=== PATIENT | male | born 1945 | race Caucasian/White ===

== ENCOUNTER 2018-11-16 21:42 | Emergency (ER) | payer MEDICARE ==
[~2018-11-16] VITALS: Ht 172.7 cm; Wt 87.0 kg
--- NOTE | 2018-11-16 21:55 | NUR ---
PT IN XRAY
[2018-11-16 22:08] LABS: BASOPHILS # (AUTO) 0.1 X10'3 (0-0.2); BASOPHILS % (AUTO) 0.7 % (0-1); EOSINOPHILS # (AUTO) 0.5 X10'3 (0-0.9); EOSINOPHILS % (AUTO) 5.4 % (0-6); HEMATOCRIT 35.8 % (42.0-52.0); HEMOGLOBIN 12.4 g/dl (14.0-17.9); LYMPHOCYTES # (AUTO) 2.2 X10'3 (1.1-4.8); LYMPHOCYTES % (AUTO) 24.1 % (21-51); MEAN CORPUSCULAR HEMOGLOBIN 32.1 PG (27.0-31.0); MEAN CORPUSCULAR HGB CONC 34.5 g/dL (33.0-36.5); MEAN CORPUSCULAR VOLUME 92.8 FL (78-98); MEAN PLATELET VOLUME 6.3 FL (7.4-10.4); MONOCYTES % (AUTO) 11.2 % (2-12); NEUTROPHILS # (AUTO) 5.3 X10'3 (1.8-7.7); NEUTROPHILS % (AUTO) 58.6 % (42-75); PLATELET COUNT 155 X10'3 (140-440); RED BLOOD COUNT 3.86 X10'6 (4.70-6.10); RED CELL DISTRIBUTION WIDTH 16.1 % (11.5-14.5); WHITE BLOOD COUNT 9.1 X10'3 (4.5-11.0)
[2018-11-16 22:29] LABS: ALANINE AMINOTRANSFERASE 16 U/L (12-78); ALBUMIN 3.4 G/DL (3.4-5.0); ALBUMIN/GLOBULIN RATIO 0.8 (1.1-1.5); ALKALINE PHOSPHATASE 97 IU/L (46-116); ANION GAP 11 (8-16); ASPARTATE AMINO TRANSFERASE 19 U/L (10-37); BILIRUBIN,TOTAL 0.9 MG/DL (0.1-1.0); BLOOD UREA NITROGEN 15 MG/DL (7-18); BUN/CREATININE RATIO 16.7 (5.4-32.0); CALCIUM 9.2 MG/DL (8.5-10.1); CHLORIDE 105 MMOL/L (99-107); GLUCOSE 112 MG/DL (70-104); SODIUM 140 MMOL/L (135-145); TOTAL CARBON DIOXIDE 23.7 MMOL/L (24-32); TOTAL PROTEIN 7.5 G/DL (6.4-8.2); eGFR 82 ML/MIN
[2018-11-16] MEDS ORDERED: potassium Cl 20 mEq SR tablet PO STA (22:38)
[2018-11-16 23:31] LABS: D-DIMER 2.07 MG/L FEU (0-0.50)
[2018-11-17] MEDS ORDERED: iohexol 350MG/ML 100ml bottle IV ONE (00:09)
[2018-11-17] MEDS ORDERED: normal saline 1000ML IV soln IVB ONE (00:20)
--- NOTE | 2018-11-17 00:37 | NUR ---
TO CT SCAN
--- NOTE | 2018-11-17 00:41 | NUR ---
Nitin kenny in [facility] - 11/17/18 at 0047 by ELLA PATIENT SLEEPING
[2018-11-17 02:40] VITALS: BP 140/75
== END 2018-11-17 02:41 | disposition home or self-care (01) ==
LOC: ER 21:43
DX: K80.20 Calculus of gallbladder without cholecystitis without obstruction (principal); R07.89 Other chest pain; R06.02 Shortness of breath; E87.6 Hypokalemia; I25.10 Atherosclerotic heart disease of native coronary artery without angina pectoris; E78.00 Pure hypercholesterolemia, unspecified; I10 Essential (primary) hypertension; Z87.891 Personal history of nicotine dependence
CPT/HCPCS: 36415; 71045; 71275; 80053; 83880; 84484; 85025; 85379; 93005; 99284; J7030; Q9967

== ENCOUNTER 2019-05-19 07:58 | Observation (INO) | payer MEDICARE, BC ==
[~2019-05-19] VITALS: Ht 172.7 cm; Wt 87.3 kg
[2019-05-19] MEDS ORDERED: meclizine 12.5mg tablet PO ONE (08:35)
[2019-05-19 09:10] LABS: BASOPHILS # (AUTO) 0.1 X10'3 (0-0.2); BASOPHILS % (AUTO) 1.2 % (0-1); EOSINOPHILS # (AUTO) 0.4 X10'3 (0-0.9); EOSINOPHILS % (AUTO) 7.2 % (0-6); HEMATOCRIT 37.9 % (42.0-52.0); HEMOGLOBIN 12.9 g/dl (14.0-17.9); LYMPHOCYTES # (AUTO) 1.6 X10'3 (1.1-4.8); LYMPHOCYTES % (AUTO) 30.5 % (21-51); MEAN CORPUSCULAR HGB CONC 34.2 g/dL (33.0-36.5); MEAN CORPUSCULAR VOLUME 96.6 FL (78-98); MEAN PLATELET VOLUME 6.5 FL (7.4-10.4); MONOCYTES # (AUTO) 0.4 X10'3 (0-0.9); NEUTROPHILS # (AUTO) 2.9 X10'3 (1.8-7.7); NEUTROPHILS % (AUTO) 53.1 % (42-75); PLATELET COUNT 181 X10'3 (140-440); RED BLOOD COUNT 3.92 X10'6 (4.70-6.10); RED CELL DISTRIBUTION WIDTH 13.4 % (11.5-14.5); WHITE BLOOD COUNT 5.4 X10'3 (4.5-11.0)
[2019-05-19 09:17] LABS: PARTIAL THROMBOPLASTIN TIME 29 SECONDS (22-32)
[2019-05-19 09:27] LABS: ALANINE AMINOTRANSFERASE 16 U/L (12-78); ALBUMIN 3.2 G/DL (3.4-5.0); ALBUMIN/GLOBULIN RATIO 0.8 (1.1-1.5); ALKALINE PHOSPHATASE 98 IU/L (46-116); ANION GAP 8 (8-16); ASPARTATE AMINO TRANSFERASE 20 U/L (10-37); BILIRUBIN,TOTAL 0.6 MG/DL (0.1-1.0); BLOOD UREA NITROGEN 17 MG/DL (7-18); CALCIUM 8.9 MG/DL (8.5-10.1); CHLORIDE 105 MMOL/L (99-107); GLUCOSE 98 MG/DL (70-104); SODIUM 140 MMOL/L (135-145); TOTAL CARBON DIOXIDE 27.3 MMOL/L (24-32); TOTAL PROTEIN 7.2 G/DL (6.4-8.2); eGFR 73 ML/MIN
[2019-05-19 09:28] LABS: POTASSIUM 3.6 MMOL/L (3.5-5.1)
[2019-05-19] MEDS ORDERED: LORazepam 1 MG tablet PO ONE (10:10)
[2019-05-19] MEDS ORDERED: ondansetron/PF 4mg/2ml inj IV PRN (10:20)
[2019-05-19] MEDS ORDERED: acetaminophen 325mg tablet PO PRN ×2 (10:20)
[2019-05-19] MEDS ORDERED: morphine 2 MG/ML inj. syringe IV PRN ×2 (10:20)
[2019-05-19] MEDS ORDERED: HYDROcodone/acetaminophen 5mg/325mg tablet PO PRN (10:20)
[2019-05-19] MEDS ORDERED: magnesium hydroxide 30ml (MOM) UD suspension PO PRN (10:20)
[2019-05-19] MEDS ORDERED: mag hydrox/Alum hydrox/simeth 30ml oral suspension PO PRN (10:20)
[2019-05-19] MEDS ORDERED: LOSA1TAB39 PO (10:34)
[2019-05-19] MEDS ORDERED: SIMV-42 PO (10:34)
[2019-05-19] MEDS ORDERED: BUDE10.2 INH (10:34)
[2019-05-19] MEDS ORDERED: AMLO10TA13 PO (10:34)
[2019-05-19] MEDS ORDERED: CLOP75TA35 PO (10:34)
[2019-05-19] MEDS ORDERED: APIX5TAB3 PO (10:34)
[2019-05-19] MEDS ORDERED: ATEN25TA17 PO (10:34)
[2019-05-19] MEDS: normal saline 1000ml 1,000 ML IV SCH ×2 (10:48→21:42)
--- NOTE | 2019-05-19 10:59 | NUR ---
RECEIVED REPORT FROM BARRY BRINK IN ER
[2019-05-19 12:09] VITALS: BP 159/77
[2019-05-19] MEDS ORDERED: meclizine 12.5mg tablet PO PRN (12:35)
[2019-05-19 12:44] LABS: CLARITY,URINE CLEAR (Clear); COLOR,URINE STRAW (Yellow); GLUCOSE, URINE NEGATIVE (Neg); KETONES,URINE NEGATIVE (Neg); LEUKOCYTE ESTERASE ,URINE NEGATIVE (Neg); NITRITES, URINE NEGATIVE (Neg); OCCULT BLOOD,URINE SMALL (Neg); PROTEIN,URINE NEGATIVE (Neg); UROBILINOGEN,URINE 0.2 E.U/dL (0.2-1.0)
[2019-05-19] MEDS ORDERED: LORazepam 2 mg/ml vial IV ONE (12:50)
[2019-05-19 12:52] LABS: UA COLLECTION TYPE NON-SPECIFIED
[2019-05-19 12:58] LABS: HYALINE CASTS 0-3 /LPF (NEGATIVE); MUCUS STRANDS FEW /LPF (Neg); SQUAMOUS EPITHELIAL CELL,UR FEW /LPF (FEW)
[2019-05-19 12:59] LABS: BACTERIA,URINE NONE SEEN /HPF (Neg); WBC,URINE NONE SEEN /HPF (0-4)
[2019-05-19 18:00] VITALS: BP 142/72
--- NOTE | 2019-05-19 18:16 | NUR ---
gave report to rena beaver
--- NOTE | 2019-05-19 18:20 | NUR ---
Received report from Joi BRINK. assumed care of patient
[2019-05-19] MEDS: apixaban 5mg tablet PO SCH (19:26)
[2019-05-19] MEDS: albuterol 2.5 MG/3 ML nebule NEB SCH (19:48)
[2019-05-19] MEDS: budesonide 0.5mg/2ml UD nebule IH SCH (19:48)
[2019-05-19 20:00] VITALS: BP_SYST 132; BP_SYST 137; BP_SYST 140; BP_DIAS 57; BP_DIAS 71; BP_DIAS 72
[2019-05-19 22:00] VITALS: BP 132/57
[2019-05-20] MEDS: albuterol 2.5 MG/3 ML nebule NEB SCH ×2 (03:12→09:57)
[2019-05-20 06:00] VITALS: BP 124/60
--- NOTE | 2019-05-20 06:15 | NUR ---
Patient in room ORTHO 4011. I have received report from [facility] and had the opportunity to ask questions and assume patient care.
--- NOTE | 2019-05-20 06:20 | NUR ---
Gave report to Annabelle BRINK.
[2019-05-20 07:24] LABS: BASOPHILS % (AUTO) 0.7 % (0-1); EOSINOPHILS # (AUTO) 0.3 X10'3 (0-0.9); EOSINOPHILS % (AUTO) 4.6 % (0-6); HEMOGLOBIN 11.8 g/dl (14.0-17.9); LYMPHOCYTES # (AUTO) 1.4 X10'3 (1.1-4.8); MEAN CORPUSCULAR HEMOGLOBIN 33.3 PG (27.0-31.0); MEAN CORPUSCULAR HGB CONC 34.8 g/dL (33.0-36.5); MEAN CORPUSCULAR VOLUME 95.8 FL (78-98); MEAN PLATELET VOLUME 6.5 FL (7.4-10.4); MONOCYTES # (AUTO) 0.6 X10'3 (0-0.9); MONOCYTES % (AUTO) 8.7 % (2-12); NEUTROPHILS # (AUTO) 4.8 X10'3 (1.8-7.7); PLATELET COUNT 161 X10'3 (140-440); RED BLOOD COUNT 3.55 X10'6 (4.70-6.10); RED CELL DISTRIBUTION WIDTH 13.4 % (11.5-14.5); WHITE BLOOD COUNT 7.1 X10'3 (4.5-11.0)
[2019-05-20] MEDS: normal saline 1000ml 1,000 ML IV SCH (07:42)
[2019-05-20 07:43] LABS: ALBUMIN 2.7 G/DL (3.4-5.0); ANION GAP 7 (8-16); BLOOD UREA NITROGEN 12 MG/DL (7-18); CALCIUM 8.4 MG/DL (8.5-10.1); CHLORIDE 106 MMOL/L (99-107); CREATININE 0.86 MG/DL (0.60-1.10); GLUCOSE 98 MG/DL (70-104); POTASSIUM 3.3 MMOL/L (3.5-5.1); SODIUM 141 MMOL/L (135-145); TOTAL CARBON DIOXIDE 27.7 MMOL/L (24-32); eGFR 87 ML/MIN
[2019-05-20] MEDS ORDERED: clopidogrel 75mg tablet PO SCH (08:00)
[2019-05-20] MEDS ORDERED: atorvastatin 10mg tablet PO SCH (08:00)
[2019-05-20] MEDS ORDERED: losartan 50mg tablet PO SCH (08:00)
[2019-05-20] MEDS ORDERED: atenolol 25mg tablet PO SCH (08:00)
[2019-05-20] MEDS ORDERED: amLODIPine 5mg tablet PO SCH (08:00)
[2019-05-20] MEDS ORDERED: HYDROchlorothiazide 25mg tablet PO SCH (08:00)
[2019-05-20] MEDS: apixaban 5mg tablet PO SCH (08:06)
--- NOTE | 2019-05-20 08:08 | NUR ---
PAGER ID: [phone] MESSAGE: Markos Siegel, RE: Mr. Gregory in room 4011A, potassium was 3.3, may we order the replacement protocol? Thank you Annabelle # [phone]
[2019-05-20] MEDS ORDERED: potassium Cl 20 mEq SR tablet PO STA (08:16)
[2019-05-20] MEDS: budesonide 0.5mg/2ml UD nebule IH SCH (09:57)
[2019-05-20 10:00] VITALS: BP 161/80
[2019-05-20] MEDS ORDERED: MECL12.584 PO (11:06)
--- NOTE | 2019-05-20 14:00 | NUR ---
Reviewed discharge instructions with pt. Pt verbalized understanding. Pt is alert, oriented and does not have c/o pain at this time. All of pt's belongings were returned to pt. Pt was wheeled downstairs to be driven home by his daughter. Rx was called in to [facility] on [address] in [place].
== END 2019-05-20 14:00 | disposition home or self-care (01) ==
LOC: ER 07:59 → ED HOLD 10:16 → ORTHO 4S 11:25
PROVIDERS: ADMIT Internal Medicine; ATTEND Internal Medicine
DX: R42 Dizziness and giddiness (principal); I10 Essential (primary) hypertension; I48.0 Paroxysmal atrial fibrillation; E78.5 Hyperlipidemia, unspecified; E78.00 Pure hypercholesterolemia, unspecified; I25.10 Atherosclerotic heart disease of native coronary artery without angina pectoris; J44.9 Chronic obstructive pulmonary disease, unspecified; Z79.01 Long term (current) use of anticoagulants; Z79.02 Long term (current) use of antithrombotics/antiplatelets; Z79.899 Other long term (current) drug therapy; Z87.891 Personal history of nicotine dependence; Z96.611 Presence of right artificial shoulder joint; Z96.612 Presence of left artificial shoulder joint
CPT/HCPCS: 36415; 70450; 70544; 70551; 71045; 80048; 80053; 81001; 83880; 84484; 85025; 85610; 85730; 87081; 93005; 94640; 94760; 96361; 96374; 99284; G0378; J2060; J7030; J8597; J7626

== ENCOUNTER 2019-05-25 05:59 | Day surgery (SDC) | payer MEDICARE, BC ==
[2019-05-23 17:12] LABS: BASOPHILS # (AUTO) 0.1 X10'3 (0-0.2); BASOPHILS % (AUTO) 0.6 % (0-1); EOSINOPHILS # (AUTO) 0.3 X10'3 (0-0.9); EOSINOPHILS % (AUTO) 3.9 % (0-6); HEMATOCRIT 37.7 % (42.0-52.0); LYMPHOCYTES # (AUTO) 1.5 X10'3 (1.1-4.8); LYMPHOCYTES % (AUTO) 18.3 % (21-51); MEAN CORPUSCULAR HEMOGLOBIN 33.4 PG (27.0-31.0); MEAN CORPUSCULAR HGB CONC 34.5 g/dL (33.0-36.5); MEAN CORPUSCULAR VOLUME 96.9 FL (78-98); MEAN PLATELET VOLUME 6.6 FL (7.4-10.4); MONOCYTES # (AUTO) 0.8 X10'3 (0-0.9); MONOCYTES % (AUTO) 10.4 % (2-12); NEUTROPHILS # (AUTO) 5.3 X10'3 (1.8-7.7); NEUTROPHILS % (AUTO) 66.8 % (42-75); PLATELET COUNT 194 X10'3 (140-440); RED BLOOD COUNT 3.89 X10'6 (4.70-6.10); RED CELL DISTRIBUTION WIDTH 13.6 % (11.5-14.5)
[2019-05-23 17:19] LABS: ALBUMIN 3.4 G/DL (3.4-5.0); ANION GAP 9 (8-16); BLOOD UREA NITROGEN 21 MG/DL (7-18); BUN/CREATININE RATIO 20.8 (5.4-32.0); CALCIUM 9.4 MG/DL (8.5-10.1); CHLORIDE 103 MMOL/L (99-107); CREATININE 1.01 MG/DL (0.60-1.10); GLUCOSE 102 MG/DL (70-104); POTASSIUM 3.7 MMOL/L (3.5-5.1); SODIUM 138 MMOL/L (135-145); eGFR 72 ML/MIN
[2019-05-23 17:23] LABS: PARTIAL THROMBOPLASTIN TIME 31 SECONDS (22-32)
[~2019-05-25] VITALS: Ht 172.7 cm; Wt 88.0 kg
[2019-05-25] VITALS (13 sets, daily range): BP systolic 108–148; BP diastolic 64–89
[~2019-05-25 05:59] MED LIST: AMLO10TA13 PO; APIX5TAB3 PO; ATEN25TA17 PO; BUDE10.2 INH; CLOP75TA35 PO; LOSA1TAB39 PO; MECL12.584 PO; SIMV-42 PO
[2019-05-25] MEDS ORDERED: MECL12.584 PO (06:24)
[2019-05-25] MEDS ORDERED: LORazepam 0.5 MG tablet PO PRN (06:30)
[2019-05-25] MEDS ORDERED: LIDOcaine/PRILOcaine 5gm cream TP ONE (06:30)
[2019-05-25] MEDS ORDERED: diphenhydrAMINE 25mg capsule PO PRN (06:30)
[2019-05-25] MEDS ORDERED: normal saline 1,000 ML IV SCH (06:30)
[2019-05-25] MEDS ORDERED: nitroGLYCERIN-Tridil 50MG/D5W 250 ML IV ONE (07:28)
[2019-05-25] MEDS ORDERED: iohexol 350 MG/ML 50ML vial IV ONE (07:28)
[2019-05-25] MEDS ORDERED: midazolam 2 mg/2 ml injection ONE ×2 (07:28→08:27)
[2019-05-25] MEDS ORDERED: iohexol 350MG/ML 100ml bottle IV ONE ×2 (07:28→08:46)
[2019-05-25] MEDS ORDERED: heparin 1,000unit/ml 10ml vial 10 ML ONE (07:28)
[2019-05-25] MEDS ORDERED: fentaNYL/PF 50MCG/1 ML 2ML syringe ONE ×2 (07:28→08:27)
[2019-05-25] MEDS ORDERED: LIDOcaine 1% 30ml preserv. free vial ONE (07:28)
--- NOTE | 2019-05-25 08:15 | NUR ---
Dr. SANDHYA Astorga called, stated heart cath will be a femoral approach, no RT AC needed. One attempt had already been made without success. apolinar applied. no further attempts needed.
--- NOTE | 2019-05-25 11:15 | NUR ---
voided 500ml yellow clear fluid
--- NOTE | 2019-05-25 12:55 | NUR ---
Pt voided 450ml, clear, yellow
--- NOTE | 2019-05-25 14:00 | NUR ---
redressed cath site drsg using sterile technique. pt now sitting up at a 35% angle. Will continue to monitor.
--- NOTE | 2019-05-25 14:15 | NUR ---
Repositioned pt to 90 degree angle while sitting in bed. Site stable, pressure drsg in place, no s/s of bleeding. will continue to monitor. Addendum: 05/25/19 at 1756 by Radha Munson RN correction, time of this event was late entry for 1630
--- NOTE | 2019-05-25 14:40 | NUR ---
Rt groin bleeding from arterial site, pressure held with sterile technique for 15 min. Groin soft at this time, no s/s of bleeding. Redressed. Pt vs charted. Pt denies pain, denies sob. Will continue to monitor.
--- NOTE | 2019-05-25 14:50 | NUR ---
Pressure dressing in place, pt laying flat, vs stable as charted will continue to monitor.
--- NOTE | 2019-05-25 16:00 | NUR ---
Pt sitting at 35 degree angle in bed. Site is stable. no s/s of bleeding, will continue to monitor.
[2019-05-25 16:01] LABS: ISTAT HGB ART 11.6 g/dl (14.0-18.0); ISTAT Hct ART 34 %PCV (42-52); ISTAT Hct MIX 34 %PCV (42-52); ISTAT O2 SATURATION ARTERIAL 96 % (95-98); ISTAT O2 SATURATION MIX VENOUS 79 % (60-80); ISTAT SOURCE ART; ISTAT SOURCE MIX
--- NOTE | 2019-05-25 16:30 | NUR ---
pt ambulated floor, site stable.
== END 2019-05-25 17:35 | disposition home or self-care (01) ==
LOC: SSTAY O 05:59
PROVIDERS: ATTEND Internal Medicine Cardiovascular Disease
DX: I35.0 Nonrheumatic aortic (valve) stenosis (principal); I70.0 Atherosclerosis of aorta; I65.23 Occlusion and stenosis of bilateral carotid arteries; I10 Essential (primary) hypertension; E78.5 Hyperlipidemia, unspecified; J44.9 Chronic obstructive pulmonary disease, unspecified; E66.9 Obesity, unspecified; Z68.29 Body mass index [BMI] 29.0-29.9, adult; Z79.899 Other long term (current) drug therapy; Z98.890 Other specified postprocedural states; Z87.891 Personal history of nicotine dependence
CPT/HCPCS: 36222; 36415; 80048; 82803; 85014; 85025; 85610; 85730; 93005; 93460; 93567; 99152; 99153; C1769; J1644; J2001; J2250; J3010; J7030; Q0163; Q9967; A4620; A6258; C1760; J3490

== ENCOUNTER 2019-10-13 12:36 | Emergency (ER) | payer MEDICARE, BC ==
[~2019-10-13] VITALS: Ht 172.7 cm; Wt 85.0 kg
[~2019-10-13 12:36] MED LIST changes: +MECL-184 PO; -MECL12.584 PO
[2019-10-13 13:36] LABS: BASOPHILS # (AUTO) 0.1 X10'3 (0-0.2); BASOPHILS % (AUTO) 1.2 % (0-1); EOSINOPHILS # (AUTO) 0.2 X10'3 (0-0.9); EOSINOPHILS % (AUTO) 2.3 % (0-6); HEMATOCRIT 37.3 % (42.0-52.0); HEMOGLOBIN 12.7 g/dl (14.0-17.9); LYMPHOCYTES # (AUTO) 0.7 X10'3 (1.1-4.8); LYMPHOCYTES % (AUTO) 7.6 % (21-51); MEAN CORPUSCULAR HEMOGLOBIN 32.6 PG (27.0-31.0); MEAN CORPUSCULAR HGB CONC 34.1 g/dL (33.0-36.5); MEAN CORPUSCULAR VOLUME 95.6 FL (78-98); MEAN PLATELET VOLUME 6.6 FL (7.4-10.4); MONOCYTES # (AUTO) 0.5 X10'3 (0-0.9); MONOCYTES % (AUTO) 5.3 % (2-12); NEUTROPHILS # (AUTO) 8.2 X10'3 (1.8-7.7); NEUTROPHILS % (AUTO) 83.6 % (42-75); PLATELET COUNT 147 X10'3 (140-440); RED BLOOD COUNT 3.91 X10'6 (4.70-6.10); RED CELL DISTRIBUTION WIDTH 13.8 % (11.5-14.5); WHITE BLOOD COUNT 9.8 X10'3 (4.5-11.0)
[2019-10-13 13:51] LABS: ALANINE AMINOTRANSFERASE 12 U/L (12-78); ALBUMIN 3.5 G/DL (3.4-5.0); ALKALINE PHOSPHATASE 80 IU/L (46-116); ANION GAP 9 (8-16); ASPARTATE AMINO TRANSFERASE 25 U/L (10-37); BILIRUBIN,TOTAL 1.2 MG/DL (0.1-1.0); BLOOD UREA NITROGEN 16 MG/DL (7-18); BUN/CREATININE RATIO 16.3 (5.4-32.0); CALCIUM 8.6 MG/DL (8.5-10.1); CHLORIDE 105 MMOL/L (99-107); CREATININE 0.98 MG/DL (0.60-1.10); GLUCOSE 121 MG/DL (70-104); POTASSIUM 3.8 MMOL/L (3.5-5.1); SODIUM 140 MMOL/L (135-145); TOTAL CARBON DIOXIDE 25.9 MMOL/L (24-32); eGFR 75 ML/MIN
[2019-10-13 14:23] VITALS: BP 118/77
== END 2019-10-13 14:51 | disposition home or self-care (01) ==
LOC: ER 12:36
DX: R06.02 Shortness of breath (principal); R09.89 Other specified symptoms and signs involving the circulatory and respiratory systems; I25.10 Atherosclerotic heart disease of native coronary artery without angina pectoris; E78.00 Pure hypercholesterolemia, unspecified; I10 Essential (primary) hypertension; J44.9 Chronic obstructive pulmonary disease, unspecified; F17.200 Nicotine dependence, unspecified, uncomplicated; Z79.899 Other long term (current) drug therapy
CPT/HCPCS: 36415; 71045; 80053; 83605; 83880; 84145; 85025; 87040; 93005; 99285

== ENCOUNTER 2020-06-23 14:14 | Emergency (ER) | payer MEDICARE, BC ==
[~2020-06-23] VITALS: Ht 172.7 cm; Wt 86.4 kg
[~2020-06-23 14:14] MED LIST changes: +CLOP75TA34 PO; -CLOP75TA35 PO
[2020-06-23] MEDS ORDERED: TETanus/Pertussis (Acell)/Diphther VAC/PF (Tdap-Adult) 0.5ml syringe IMVAC ONE (15:00)
[2020-06-23] MEDS ORDERED: LIDOcaine 1% W/epiNEPHrine 1:200,000 10ml vial IJ ONE (15:00)
[2020-06-23] MEDS ORDERED: LORazepam 0.5 MG tablet PO ONE (15:15)
[2020-06-23] MEDS ORDERED: cefazolin/dext.iso 2gm/100ml 100 ML IV ONE (15:20)
[2020-06-23] MEDS ORDERED: ceFAZolin 2gm in dextrose, iso 50 ML IV ONE (15:23)
[2020-06-23] MEDS ORDERED: CEPH250T PO (16:10)
[2020-06-23] MEDS ORDERED: HYDR-4383 PO (16:10)
[2020-06-23 17:09] VITALS: BP 149/68
== END 2020-06-23 17:11 | disposition home or self-care (01) ==
LOC: ER 14:15
DX: S68.110A Complete traumatic metacarpophalangeal amputation of right index finger, initial encounter (principal); I25.10 Atherosclerotic heart disease of native coronary artery without angina pectoris; E78.00 Pure hypercholesterolemia, unspecified; J44.9 Chronic obstructive pulmonary disease, unspecified; I10 Essential (primary) hypertension; Z98.890 Other specified postprocedural states; Z79.899 Other long term (current) drug therapy; W22.8XXA Striking against or struck by other objects, initial encounter; Y93.89 Activity, other specified; Y99.8 Other external cause status; Y92.89 Other specified places as the place of occurrence of the external cause
CPT/HCPCS: 26951; 73140; 90471; 90715; 96365; 99284

== ENCOUNTER 2020-06-23 20:19 | Emergency (ER) | payer MEDICARE, BC ==
[~2020-06-23] VITALS: Ht 172.7 cm; Wt 86.4 kg
[~2020-06-23 20:19] MED LIST changes: +CEPH250T PO; +HYDR-4383 PO
[2020-06-23 20:57] VITALS: BP 149/79
== END 2020-06-23 22:15 | disposition home or self-care (01) ==
LOC: ER 20:20
DX: S68.120D Partial traumatic metacarpophalangeal amputation of right index finger, subsequent encounter (principal); I25.10 Atherosclerotic heart disease of native coronary artery without angina pectoris; I10 Essential (primary) hypertension; E78.00 Pure hypercholesterolemia, unspecified; J44.9 Chronic obstructive pulmonary disease, unspecified; Z87.891 Personal history of nicotine dependence; Z79.2 Long term (current) use of antibiotics; Z79.899 Other long term (current) drug therapy; X58.XXXD Exposure to other specified factors, subsequent encounter
CPT/HCPCS: 99281; 99283

== ENCOUNTER 2021-05-13 09:30 | Inpatient (IN) | payer MEDICARE, BC ==
[~2021-05-13] VITALS: Ht 170.2 cm; Wt 86.4 kg
[~2021-05-13 09:30] MED LIST changes: +ALBU17AE26 IH; +AMIO200T67 PO; +ASPI-1071 PO; -ATEN25TA17 PO; +ATOR40TA72 PO; -CEPH250T PO; -CLOP75TA34 PO; -HYDR-4383 PO; -MECL-184 PO; +MECL-231 PO; -SIMV-42 PO; +[UNRECOGNIZED DRUG - CODE] PO
--- NOTE | 2021-05-13 09:42 | NUR ---
Luiza Gregory ([facility]) [phone].
[2021-05-13 10:24] LABS: BASOPHILS # (AUTO) 0.1 X10'3 (0-0.2); EOSINOPHILS # (AUTO) 0.2 X10'3 (0-0.9); EOSINOPHILS % (AUTO) 2.5 % (0-6); HEMATOCRIT 37.3 % (42.0-52.0); HEMOGLOBIN 12.9 g/dl (14.0-17.9); LYMPHOCYTES % (AUTO) 12.8 % (21-51); MEAN CORPUSCULAR HEMOGLOBIN 33.9 PG (27.0-31.0); MEAN CORPUSCULAR HGB CONC 34.6 g/dL (33.0-36.5); MEAN PLATELET VOLUME 6.6 FL (7.4-10.4); MONOCYTES # (AUTO) 0.7 X10'3 (0-0.9); MONOCYTES % (AUTO) 8.4 % (2-12); NEUTROPHILS # (AUTO) 5.9 X10'3 (1.8-7.7); NEUTROPHILS % (AUTO) 75.3 % (42-75); PLATELET COUNT 139 X10'3 (140-440); RED BLOOD COUNT 3.81 X10'6 (4.70-6.10); WHITE BLOOD COUNT 7.9 X10'3 (4.5-11.0)
[2021-05-13 10:37] LABS: D-DIMER 1.77 MG/L FEU (0-0.50)
[2021-05-13 10:39] LABS: ALANINE AMINOTRANSFERASE 19 U/L (12-78); ALBUMIN 3.8 G/DL (3.4-5.0); ALBUMIN/GLOBULIN RATIO 1.2 (1.1-1.5); ALKALINE PHOSPHATASE 98 IU/L (46-116); ANION GAP 10 (8-16); ASPARTATE AMINO TRANSFERASE 20 U/L (10-37); BILIRUBIN,TOTAL 1.5 MG/DL (0.1-1.0); BLOOD UREA NITROGEN 10 MG/DL (7-18); BUN/CREATININE RATIO 10.1 (5.4-32.0); CALCIUM 8.6 MG/DL (8.5-10.1); CHLORIDE 93 MMOL/L (99-107); CREATININE 0.99 MG/DL (0.60-1.10); GLUCOSE 122 MG/DL (70-104); POTASSIUM 4.1 MMOL/L (3.5-5.1); SODIUM 129 MMOL/L (135-145); TOTAL CARBON DIOXIDE 25.9 MMOL/L (24-32); TOTAL PROTEIN 7.1 G/DL (6.4-8.2); eGFR 73 ML/MIN
[2021-05-13 10:47] LABS: C-REACTIVE PROTEIN 0.39 MG/DL (0.0-0.5); LACTATE DEHYDROGENASE 324 U/L (85-227)
[2021-05-13] MEDS ORDERED: iohexol 350MG/ML 100ml bottle IV ONE (11:18)
[2021-05-13] MEDS ORDERED: ipratropium/albuterol 3ml nebule NEB ONE (11:20)
--- NOTE | 2021-05-13 11:28 | NUR ---
RT AT BEDSIDE.
--- NOTE | 2021-05-13 11:57 | NUR ---
RT AT BEDSIDE
[2021-05-13] MEDS ORDERED: furosemide 10 MG/1 ML 10ml inj IV ONE (13:40)
[2021-05-13] MEDS ORDERED: mag hydrox/Alum hydrox/simeth 30ml oral suspension PO PRN (14:25)
[2021-05-13] MEDS ORDERED: morphine 2 MG/ML inj. syringe IV PRN (14:25)
[2021-05-13] MEDS ORDERED: ondansetron/PF 4mg/2ml inj IV PRN (14:25)
[2021-05-13] MEDS ORDERED: magnesium 4gm in 100ml NS 100 ML IV PRN (14:25)
[2021-05-13] MEDS ORDERED: magnesium hydroxide 30ml (MOM) UD suspension PO PRN (14:25)
[2021-05-13] MEDS ORDERED: magnesium Cl slow-release 64mg tablet PO PRN (14:25)
[2021-05-13] MEDS ORDERED: potassium Cl 20 mEq SR tablet PO PRN ×2 (14:25)
[2021-05-13] MEDS ORDERED: acetaminophen 325mg tablet PO PRN ×2 (14:25)
[2021-05-13] MEDS ORDERED: magnesium 2GM in 50ml NS 50 ML IV PRN (14:25)
[2021-05-13] MEDS ORDERED: potassium CL 10mEq/100ml bag 100 ML IV PRN (14:25)
[2021-05-13] MEDS ORDERED: ASPI81TA52 PO (15:04)
[2021-05-13] MEDS: furosemide 20 MG/2 ML vial IV SCH ×2 (15:06→20:24)
[2021-05-13 15:12] LABS: MAGNESIUM 1.6 MG/DL (1.5-2.4)
[2021-05-13] MEDS: K and/or MAG REPLACEMENT MC SCH (19:58)
[2021-05-13] MEDS: docusate sod 100mg capsule PO SCH (20:00)
[2021-05-14] VITALS (7 sets, daily range): BP systolic 97–147; BP diastolic 51–62
--- NOTE | 2021-05-14 | NUR ---
Patient in room PCU 3025. I have received report from Anna BRINK and had the opportunity to ask questions and assume patient care.
--- NOTE | 2021-05-14 06:22 | NUR ---
Problems reprioritized. Patient report given, questions answered & plan of care reviewed with Amita BRINK.
[2021-05-14 06:38] LABS: BASOPHILS # (AUTO) 0.1 X10'3 (0-0.2); EOSINOPHILS # (AUTO) 0.2 X10'3 (0-0.9); EOSINOPHILS % (AUTO) 2.8 % (0-6); HEMATOCRIT 33.8 % (42.0-52.0); HEMOGLOBIN 11.8 g/dl (14.0-17.9); LYMPHOCYTES % (AUTO) 16.5 % (21-51); MEAN CORPUSCULAR HEMOGLOBIN 34.2 PG (27.0-31.0); MEAN CORPUSCULAR HGB CONC 34.8 g/dL (33.0-36.5); MEAN CORPUSCULAR VOLUME 98.4 FL (78-98); MEAN PLATELET VOLUME 6.8 FL (7.4-10.4); MONOCYTES # (AUTO) 0.7 X10'3 (0-0.9); MONOCYTES % (AUTO) 12.8 % (2-12); NEUTROPHILS # (AUTO) 3.9 X10'3 (1.8-7.7); NEUTROPHILS % (AUTO) 66.9 % (42-75); PLATELET COUNT 114 X10'3 (140-440); RED BLOOD COUNT 3.44 X10'6 (4.70-6.10); RED CELL DISTRIBUTION WIDTH 14.7 % (11.5-14.5); WHITE BLOOD COUNT 5.8 X10'3 (4.5-11.0)
[2021-05-14 06:54] LABS: ALBUMIN 3.1 G/DL (3.4-5.0); ANION GAP 7 (8-16); BLOOD UREA NITROGEN 12 MG/DL (7-18); BUN/CREATININE RATIO 11.4 (5.4-32.0); CALCIUM 8.9 MG/DL (8.5-10.1); CHLORIDE 95 MMOL/L (99-107); CREATININE 1.05 MG/DL (0.60-1.10); GLUCOSE 90 MG/DL (70-104); MAGNESIUM 1.5 MG/DL (1.5-2.4); POTASSIUM 3.7 MMOL/L (3.5-5.1); SODIUM 131 MMOL/L (135-145); TOTAL CARBON DIOXIDE 28.9 MMOL/L (24-32); eGFR 69 ML/MIN
--- NOTE | 2021-05-14 07:09 | NUR ---
Patient in room PCU 3025. I have received report from Babar James and had the opportunity to ask questions and assume patient care.
[2021-05-14] MEDS: docusate sod 100mg capsule PO SCH ×2 (08:00→19:15)
[2021-05-14] MEDS: K and/or MAG REPLACEMENT MC SCH ×2 (08:00→20:00)
[2021-05-14] MEDS: furosemide 20 MG/2 ML vial IV SCH ×2 (09:37→19:14)
--- NOTE | 2021-05-14 10:06 | NUR ---
PAGER ID: [phone] MESSAGE: SONY ON [email or web address]@[phone], CT WAS HAVING TROUBLE WITH [facility], SO REPORT IS ON THE IMAGING FOR 5500R, THX
[2021-05-14] MEDS ORDERED: albuterol 2.5 MG/3 ML nebule NEB PRN (11:55)
[2021-05-14] MEDS: morphine 2 MG/ML inj. syringe IV PRN (15:06)
[2021-05-14] MEDS: albuterol 2.5 MG/3 ML nebule NEB SCH ×2 (16:08→20:05)
--- NOTE | 2021-05-14 18:41 | NUR ---
Patient in room PCU 3025. I have received report from KEENA Regalado and had the opportunity to ask questions and assume patient care.
--- NOTE | 2021-05-14 19:09 | NUR ---
Problems reprioritized. Patient report given, questions answered & plan of care reviewed with Brenda.
[2021-05-14] MEDS: budesonide 0.5mg/2ml UD nebule IH SCH (20:05)
[2021-05-14] MEDS: aspirin 81mg, enteric-coated 1 TAB TABLET.DR PO SCH (21:02)
[2021-05-14] MEDS: amLODIPine 5mg tablet PO SCH (21:02)
[2021-05-14] MEDS: atenolol 25mg tablet PO SCH (21:03)
[2021-05-15 02:00] VITALS: BP 102/68
[2021-05-15] MEDS: albuterol 2.5 MG/3 ML nebule NEB SCH ×4 (03:39→20:28)
[2021-05-15] MEDS: morphine 2 MG/ML inj. syringe IV PRN ×2 (03:46→14:09)
[2021-05-15 06:09] LABS: BASOPHILS % (AUTO) 0.3 % (0-1); EOSINOPHILS % (AUTO) 0.1 % (0-6); HEMOGLOBIN 12.3 g/dl (14.0-17.9); LYMPHOCYTES % (AUTO) 11.6 % (21-51); MEAN CORPUSCULAR HEMOGLOBIN 34.2 PG (27.0-31.0); MEAN CORPUSCULAR HGB CONC 35.2 g/dL (33.0-36.5); MEAN PLATELET VOLUME 6.8 FL (7.4-10.4); MONOCYTES # (AUTO) 1.2 X10'3 (0-0.9); NEUTROPHILS # (AUTO) 6.3 X10'3 (1.8-7.7); PLATELET COUNT 104 X10'3 (140-440); RED BLOOD COUNT 3.61 X10'6 (4.70-6.10); RED CELL DISTRIBUTION WIDTH 14.8 % (11.5-14.5); WHITE BLOOD COUNT 8.5 X10'3 (4.5-11.0)
--- NOTE | 2021-05-15 06:18 | NUR ---
Problems reprioritized. Patient report given, questions answered & plan of care reviewed with KEENA Regalado.
[2021-05-15 06:31] LABS: ALBUMIN 3.1 G/DL (3.4-5.0); ANION GAP 8 (8-16); BLOOD UREA NITROGEN 12 MG/DL (7-18); BUN/CREATININE RATIO 12.2 (5.4-32.0); CALCIUM 9.3 MG/DL (8.5-10.1); CHLORIDE 95 MMOL/L (99-107); CREATININE 0.98 MG/DL (0.60-1.10); GLUCOSE 137 MG/DL (70-104); MAGNESIUM 1.5 MG/DL (1.5-2.4); POTASSIUM 3.9 MMOL/L (3.5-5.1); SODIUM 135 MMOL/L (135-145); TOTAL CARBON DIOXIDE 32.3 MMOL/L (24-32); eGFR 74 ML/MIN
[2021-05-15 07:00] VITALS: BP 121/52
--- NOTE | 2021-05-15 07:09 | NUR ---
Patient in room PCU 3025. I have received report from Brenda and had the opportunity to ask questions and assume patient care.
[2021-05-15] MEDS: HYDROcodone/acetaminophen 5mg/325mg tablet PO PRN ×2 (07:55→21:20)
[2021-05-15] MEDS: K and/or MAG REPLACEMENT MC SCH ×2 (08:00→18:53)
[2021-05-15] MEDS: budesonide 0.5mg/2ml UD nebule IH SCH ×2 (08:12→20:28)
[2021-05-15] MEDS: atorvastatin 20mg tablet PO SCH (08:48)
[2021-05-15] MEDS: docusate sod 100mg capsule PO SCH ×2 (08:48→19:37)
[2021-05-15] MEDS: HYDROchlorothiazide 25mg tablet PO SCH (08:49)
[2021-05-15] MEDS: furosemide 20 MG/2 ML vial IV SCH ×2 (08:50→19:37)
[2021-05-15] MEDS: losartan 50mg tablet PO SCH (08:50)
--- NOTE | 2021-05-15 10:39 | NUR ---
Patient's O2 disconnected for 1 hr. Post O2 sat-93% on room air. Plan of care will continue.
[2021-05-15] MEDS ORDERED: FURO-150 PO (11:31)
[2021-05-15 15:00] VITALS: BP 109/49
[2021-05-15 18:00] VITALS: BP 136/59
--- NOTE | 2021-05-15 19:11 | NUR ---
Problems reprioritized. Patient report given, questions answered & plan of care reviewed with Sommer.
[2021-05-15] MEDS: atenolol 25mg tablet PO SCH (21:19)
[2021-05-15 21:20] VITALS: BP 127/61
[2021-05-15] MEDS: aspirin 81mg, enteric-coated 1 TAB TABLET.DR PO SCH (21:21)
[2021-05-15] MEDS: amLODIPine 5mg tablet PO SCH (21:21)
[2021-05-15 22:00] VITALS: BP 104/56
[2021-05-16 02:00] VITALS: BP 109/52
[2021-05-16] MEDS: albuterol 2.5 MG/3 ML nebule NEB SCH ×4 (03:00→19:26)
[2021-05-16 06:00] VITALS: BP 97/56
[2021-05-16 06:09] LABS: ALBUMIN 2.8 G/DL (3.4-5.0); ANION GAP 8 (8-16); BASOPHILS % (AUTO) 0.2 % (0-1); BLOOD UREA NITROGEN 23 MG/DL (7-18); BUN/CREATININE RATIO 15.2 (5.4-32.0); CALCIUM 9.1 MG/DL (8.5-10.1); CHLORIDE 93 MMOL/L (99-107); CREATININE 1.51 MG/DL (0.60-1.10); EOSINOPHILS % (AUTO) 0 % (0-6); GLUCOSE 123 MG/DL (70-104); HEMATOCRIT 35.2 % (42.0-52.0); HEMOGLOBIN 12.2 g/dl (14.0-17.9); LYMPHOCYTES % (AUTO) 8.2 % (21-51); MAGNESIUM 1.4 MG/DL (1.5-2.4); MEAN CORPUSCULAR HEMOGLOBIN 33.8 PG (27.0-31.0); MEAN CORPUSCULAR HGB CONC 34.6 g/dL (33.0-36.5); MEAN CORPUSCULAR VOLUME 97.6 FL (78-98); MEAN PLATELET VOLUME 7.1 FL (7.4-10.4); MONOCYTES # (AUTO) 1.5 X10'3 (0-0.9); MONOCYTES % (AUTO) 12.3 % (2-12); NEUTROPHILS # (AUTO) 9.6 X10'3 (1.8-7.7); NEUTROPHILS % (AUTO) 79.3 % (42-75); PLATELET COUNT 98 X10'3 (140-440); POTASSIUM 3.3 MMOL/L (3.5-5.1); RED BLOOD COUNT 3.61 X10'6 (4.70-6.10); RED CELL DISTRIBUTION WIDTH 14.7 % (11.5-14.5); SODIUM 131 MMOL/L (135-145); TOTAL CARBON DIOXIDE 29.9 MMOL/L (24-32); WHITE BLOOD COUNT 12.1 X10'3 (4.5-11.0); eGFR 45 ML/MIN
[2021-05-16] MEDS: K and/or MAG REPLACEMENT MC SCH ×2 (08:00→20:00)
[2021-05-16] MEDS: HYDROchlorothiazide 25mg tablet PO SCH (08:00)
[2021-05-16] MEDS: budesonide 0.5mg/2ml UD nebule IH SCH ×2 (09:04→19:26)
[2021-05-16] MEDS: furosemide 20MG tablet PO SCH (09:20)
[2021-05-16] MEDS: losartan 50mg tablet PO SCH (09:22)
[2021-05-16] MEDS: atorvastatin 20mg tablet PO SCH (09:23)
[2021-05-16] MEDS: docusate sod 100mg capsule PO SCH ×2 (09:23→21:36)
[2021-05-16] MEDS: HYDROcodone/acetaminophen 5mg/325mg tablet PO PRN (09:23)
[2021-05-16 11:00] VITALS: BP 101/56
[2021-05-16 18:00] VITALS: BP 109/51
--- NOTE | 2021-05-16 19:00 | NUR ---
Pt reported that his family awaiting for him. Call placed to family member by morning nurse and was not able to contact his family. Pt agreed to go home today and have a good night sleep.
[2021-05-16] MEDS: amLODIPine 5mg tablet PO SCH (21:35)
[2021-05-16] MEDS: atenolol 25mg tablet PO SCH (21:36)
[2021-05-16] MEDS: aspirin 81mg, enteric-coated 1 TAB TABLET.DR PO SCH (21:36)
[2021-05-16 22:00] VITALS: BP 98/59
[2021-05-17 02:00] VITALS: BP 120/46
[2021-05-17 05:00] VITALS: BP 122/56
--- NOTE | 2021-05-17 06:00 | NUR ---
Pt remains in stable condition.
[2021-05-17 06:16] LABS: BASOPHILS % (AUTO) 0.3 % (0-1); EOSINOPHILS % (AUTO) 0.2 % (0-6); HEMATOCRIT 34.3 % (42.0-52.0); HEMOGLOBIN 11.9 g/dl (14.0-17.9); LYMPHOCYTES # (AUTO) 0.8 X10'3 (1.1-4.8); LYMPHOCYTES % (AUTO) 7.7 % (21-51); MEAN CORPUSCULAR HEMOGLOBIN 34.1 PG (27.0-31.0); MEAN CORPUSCULAR HGB CONC 34.7 g/dL (33.0-36.5); MEAN CORPUSCULAR VOLUME 98.4 FL (78-98); MEAN PLATELET VOLUME 7.4 FL (7.4-10.4); MONOCYTES # (AUTO) 1.2 X10'3 (0-0.9); MONOCYTES % (AUTO) 11.5 % (2-12); NEUTROPHILS # (AUTO) 8.7 X10'3 (1.8-7.7); NEUTROPHILS % (AUTO) 80.3 % (42-75); PLATELET COUNT 96 X10'3 (140-440); RED BLOOD COUNT 3.49 X10'6 (4.70-6.10); RED CELL DISTRIBUTION WIDTH 14.4 % (11.5-14.5); WHITE BLOOD COUNT 10.9 X10'3 (4.5-11.0)
[2021-05-17 06:41] LABS: ALBUMIN 2.5 G/DL (3.4-5.0); ANION GAP 9 (8-16); BLOOD UREA NITROGEN 37 MG/DL (7-18); BUN/CREATININE RATIO 21.3 (5.4-32.0); CALCIUM 8.9 MG/DL (8.5-10.1); CHLORIDE 93 MMOL/L (99-107); CREATININE 1.74 MG/DL (0.60-1.10); GLUCOSE 116 MG/DL (70-104); MAGNESIUM 1.6 MG/DL (1.5-2.4); POTASSIUM 3.2 MMOL/L (3.5-5.1); SODIUM 131 MMOL/L (135-145); TOTAL CARBON DIOXIDE 29.3 MMOL/L (24-32); eGFR 38 ML/MIN
[2021-05-17 07:00] VITALS: BP 119/53
[2021-05-17] MEDS: budesonide 0.5mg/2ml UD nebule IH SCH (08:00)
[2021-05-17 08:37] VITALS: BP_SYST 119
[2021-05-17] MEDS: losartan 50mg tablet PO SCH (08:37)
[2021-05-17] MEDS: HYDROchlorothiazide 25mg tablet PO SCH (08:37)
[2021-05-17] MEDS: docusate sod 100mg capsule PO SCH (08:37)
[2021-05-17] MEDS: furosemide 20MG tablet PO SCH (08:37)
[2021-05-17] MEDS: atorvastatin 20mg tablet PO SCH (08:37)
[2021-05-17] MEDS: albuterol 2.5 MG/3 ML nebule NEB SCH (09:00)
--- NOTE | 2021-05-17 11:08 | NUR ---
Patient discharged home, ce script called in to [facility] pharmacy, discharge instructions explained to patient, patient states understanding, all personal belongings sent home with patient, including walker. transported to [facility] via w/c and transported home by daughter in personal car. Patient alert oriented X4, stable no distress noted at this time.
== END 2021-05-17 11:02 | disposition home or self-care (01) | DRG 291 ==
LOC: ER 09:31 → ED HOLD 14:27 → PCU 3S 23:38
PROVIDERS: ADMIT Internal Medicine; ATTEND Internal Medicine
PROC: B32T1ZZ Computerized Tomography (CT Scan) of Left Pulmonary Artery using Low Osmolar Contrast (ICD-10-PCS; principal; 2021-05-13)
PROC: B3201ZZ Computerized Tomography (CT Scan) of Thoracic Aorta using Low Osmolar Contrast (ICD-10-PCS; 2021-05-13)
PROC: B32S1ZZ Computerized Tomography (CT Scan) of Right Pulmonary Artery using Low Osmolar Contrast (ICD-10-PCS; 2021-05-13)
DX: I11.0 Hypertensive heart disease with heart failure (principal); J96.01 Acute respiratory failure with hypoxia; E87.1 Hypo-osmolality and hyponatremia; I50.813 Acute on chronic right heart failure; E78.00 Pure hypercholesterolemia, unspecified; I25.10 Atherosclerotic heart disease of native coronary artery without angina pectoris; J44.9 Chronic obstructive pulmonary disease, unspecified; Z20.822 Contact with and (suspected) exposure to COVID-19; I48.0 Paroxysmal atrial fibrillation; E78.5 Hyperlipidemia, unspecified; M17.0 Bilateral primary osteoarthritis of knee; Z79.899 Other long term (current) drug therapy; Z82.49 Family history of ischemic heart disease and other diseases of the circulatory system; Z87.891 Personal history of nicotine dependence
CPT/HCPCS: 36415; 71045; 71275; 80048; 80053; 83605; 83615; 83735; 83880; 84132; 84145; 84484; 85025; 85379; 85610; 86140; 87081; 87635; 93005; 94640; 94760; 96374; 97116; 97161; 97530; 99285; C9803; G0378; J1940; J2270; Q9967

== ENCOUNTER 2022-04-02 18:48 | Inpatient (IN) | payer MEDICARE, BC ==
[~2022-04-02] VITALS: Ht 170.2 cm; Wt 81.4 kg
[~2022-04-02 18:48] MED LIST changes: -AMIO200T67 PO; -APIX5TAB3 PO; -ASPI-1071 PO; +ASPI81TA52 PO; -MECL-231 PO
[2022-04-02 19:23] LABS: BASOPHILS # (AUTO) 0.1 X10'3 (0-0.2); BASOPHILS % (AUTO) 0.8 % (0-1); EOSINOPHILS # (AUTO) 0.2 X10'3 (0-0.9); EOSINOPHILS % (AUTO) 2.6 % (0-6); HEMOGLOBIN 11.1 g/dl (14.0-17.9); LYMPHOCYTES # (AUTO) 1.4 X10'3 (1.1-4.8); LYMPHOCYTES % (AUTO) 19.8 % (21-51); MEAN CORPUSCULAR HEMOGLOBIN 34.3 PG (27.0-31.0); MEAN CORPUSCULAR HGB CONC 33.8 g/dL (33.0-36.5); MEAN CORPUSCULAR VOLUME 101.6 FL (78-98); MEAN PLATELET VOLUME 7.4 FL (7.4-10.4); MONOCYTES # (AUTO) 0.9 X10'3 (0-0.9); MONOCYTES % (AUTO) 12.7 % (2-12); NEUTROPHILS # (AUTO) 4.5 X10'3 (1.8-7.7); NEUTROPHILS % (AUTO) 64.1 % (42-75); PLATELET COUNT 69 X10'3 (140-440); RED BLOOD COUNT 3.24 X10'6 (4.70-6.10); RED CELL DISTRIBUTION WIDTH 15.4 % (11.5-14.5)
[2022-04-02 19:47] LABS: ALANINE AMINOTRANSFERASE 12 U/L (12-78); ALBUMIN 3.3 G/DL (3.4-5.0); ALBUMIN/GLOBULIN RATIO 1.1 (1.1-1.5); ALKALINE PHOSPHATASE 100 IU/L (46-116); ANION GAP 15 (8-16); ASPARTATE AMINO TRANSFERASE 17 U/L (10-37); BILIRUBIN,TOTAL 1.2 MG/DL (0.1-1.0); BLOOD UREA NITROGEN 57 MG/DL (7-18); BUN/CREATININE RATIO 28.1 (5.4-32.0); CALCIUM 9.1 MG/DL (8.5-10.1); CHLORIDE 97 MMOL/L (99-107); CREATININE 2.03 MG/DL (0.60-1.10); GLUCOSE 115 MG/DL (70-104); SODIUM 137 MMOL/L (135-145); TOTAL CARBON DIOXIDE 25.4 MMOL/L (24-32); TOTAL PROTEIN 6.4 G/DL (6.4-8.2); eGFR 32 ML/MIN
[2022-04-02 19:56] LABS: POTASSIUM 2.4 MMOL/L (3.5-5.1)
[2022-04-02] MEDS ORDERED: POTASSIUM BICARB 20meq eff tab 20 MEQ TABLET.EFF PO ONE (20:15)
[2022-04-02] MEDS ORDERED: potassium Cl 10 mEq/100mL bag IV ONE (20:15)
[2022-04-02] MEDS ORDERED: furosemide 10 MG/1 ML 10ml inj IV ONE (20:20)
[2022-04-02 20:34] LABS: MAGNESIUM 1.9 MG/DL (1.5-2.4)
[2022-04-02] MEDS ORDERED: temazepam 15mg capsule PO PRN (21:00)
--- NOTE | 2022-04-02 21:06 | NUR ---
> k+ IV RIDER 1ST BAF INFUSING WITH NSS , HOLD LASIX DUE TO LOW POTASSIUM AND DELMER < 60
[2022-04-02] MEDS ORDERED: magnesium 4gm in 100ml NS 100 ML IV PRN (23:30)
[2022-04-02] MEDS ORDERED: magnesium Cl slow-release 64mg tablet PO PRN (23:30)
[2022-04-02] MEDS ORDERED: ondansetron/PF 4mg/2ml inj IV PRN (23:30)
[2022-04-02] MEDS ORDERED: cephalexin 500mg capsule PO ONE (23:30)
[2022-04-02] MEDS ORDERED: acetaminophen 325mg tablet PO PRN ×2 (23:30)
[2022-04-02] MEDS ORDERED: potassium CL 10mEq/100ml bag 100 ML IV PRN (23:30)
[2022-04-02] MEDS ORDERED: POTASSIUM BICARB 20meq eff tab 20 MEQ TABLET.EFF PO PRN (23:30)
[2022-04-02] MEDS ORDERED: magnesium 2GM in 50ml NS 50 ML IV PRN (23:30)
[2022-04-03] MEDS ORDERED: ATEN25TA PO (00:21)
[2022-04-03] MEDS ORDERED: FURO40TA4 PO (00:25)
[2022-04-03] MEDS ORDERED: POTA-207 PO (00:25)
[2022-04-03] MEDS ORDERED: non-formulary drug (Albuterol 2 PUFFS) IH PRN (01:20)
[2022-04-03 02:27] LABS: BASOPHILS # (AUTO) 0.1 X10'3 (0-0.2); BASOPHILS % (AUTO) 1.2 % (0-1); EOSINOPHILS # (AUTO) 0.3 X10'3 (0-0.9); EOSINOPHILS % (AUTO) 4.9 % (0-6); HEMATOCRIT 30.6 % (42.0-52.0); HEMOGLOBIN 10.9 g/dl (14.0-17.9); LYMPHOCYTES # (AUTO) 1.3 X10'3 (1.1-4.8); LYMPHOCYTES % (AUTO) 21.7 % (21-51); MEAN CORPUSCULAR HEMOGLOBIN 35.4 PG (27.0-31.0); MEAN CORPUSCULAR HGB CONC 35.6 g/dL (33.0-36.5); MEAN CORPUSCULAR VOLUME 99.4 FL (78-98); MEAN PLATELET VOLUME 7.6 FL (7.4-10.4); MONOCYTES # (AUTO) 0.8 X10'3 (0-0.9); MONOCYTES % (AUTO) 13.5 % (2-12); NEUTROPHILS # (AUTO) 3.6 X10'3 (1.8-7.7); NEUTROPHILS % (AUTO) 58.7 % (42-75); PLATELET COUNT 63 X10'3 (140-440); RED BLOOD COUNT 3.08 X10'6 (4.70-6.10); RED CELL DISTRIBUTION WIDTH 15.1 % (11.5-14.5); WHITE BLOOD COUNT 6.1 X10'3 (4.5-11.0)
[2022-04-03 02:46] LABS: ALANINE AMINOTRANSFERASE 10 U/L (12-78); ALKALINE PHOSPHATASE 94 IU/L (46-116); ANION GAP 9 (8-16); ASPARTATE AMINO TRANSFERASE 17 U/L (10-37); BLOOD UREA NITROGEN 53 MG/DL (7-18); BUN/CREATININE RATIO 27.7 (5.4-32.0); CALCIUM 8.9 MG/DL (8.5-10.1); CHLORIDE 100 MMOL/L (99-107); CREATININE 1.91 MG/DL (0.60-1.10); GLUCOSE 110 MG/DL (70-104); POTASSIUM 3.1 MMOL/L (3.5-5.1); SODIUM 136 MMOL/L (135-145); TOTAL CARBON DIOXIDE 27.4 MMOL/L (24-32); eGFR 34 ML/MIN
[2022-04-03 07:20] VITALS: BP 132/64
[2022-04-03] MEDS: albuterol 2.5 MG/3 ML nebule NEB PRN ×2 (09:19→20:39)
[2022-04-03] MEDS: budesonide 0.5mg/2ml UD nebule IH SCH ×2 (09:19→20:39)
[2022-04-03] MEDS ORDERED: LORazepam 2 mg/ml vial IV PRN (09:45)
[2022-04-03] MEDS ORDERED: haloperidol lactate 5mg/ml inj IM PRN (09:45)
[2022-04-03] MEDS ORDERED: haloperidol 5mg tablet PO PRN (09:45)
[2022-04-03] MEDS ORDERED: LORazepam 1 MG tablet PO PRN (09:45)
[2022-04-03] MEDS: furosemide 20 MG/2 ML vial IV SCH ×2 (10:24→20:48)
[2022-04-03] MEDS: K and/or MAG REPLACEMENT MC SCH ×2 (11:02→23:00)
[2022-04-03 12:01] VITALS: BP 105/52
[2022-04-03 16:26] VITALS: BP 103/31
[2022-04-03 16:28] VITALS: BP 101/47
[2022-04-03] MEDS: POTASSIUM BICARB 20meq eff tab 20 MEQ TABLET.EFF PO PRN ×3 (17:03→23:39)
[2022-04-03 18:00] VITALS: BP 113/56
[2022-04-03] MEDS ORDERED: amLODIPine 5mg tablet PO SCH (21:00)
[2022-04-03] MEDS ORDERED: atenolol 25mg tablet PO SCH (21:00)
[2022-04-03] MEDS ORDERED: aspirin 81mg, enteric-coated 1 TAB TABLET.DR PO SCH (21:00)
[2022-04-03] MEDS ORDERED: atorvastatin 20mg tablet PO SCH (21:00)
[2022-04-03 22:00] VITALS: BP 158/83
[2022-04-04 02:00] VITALS: BP 116/68
[2022-04-04 06:00] VITALS: BP 126/63
[2022-04-04 07:08] LABS: BASOPHILS % (AUTO) 0.5 % (0-1); EOSINOPHILS # (AUTO) 0.1 X10'3 (0-0.9); EOSINOPHILS % (AUTO) 1.7 % (0-6); HEMATOCRIT 33.5 % (42.0-52.0); HEMOGLOBIN 11.7 g/dl (14.0-17.9); LYMPHOCYTES # (AUTO) 0.9 X10'3 (1.1-4.8); LYMPHOCYTES % (AUTO) 11.7 % (21-51); MEAN CORPUSCULAR HEMOGLOBIN 35.2 PG (27.0-31.0); MEAN CORPUSCULAR HGB CONC 34.9 g/dL (33.0-36.5); MEAN CORPUSCULAR VOLUME 100.8 FL (78-98); MEAN PLATELET VOLUME 7.6 FL (7.4-10.4); MONOCYTES % (AUTO) 12.5 % (2-12); NEUTROPHILS % (AUTO) 73.6 % (42-75); PLATELET COUNT 69 X10'3 (140-440); RED BLOOD COUNT 3.33 X10'6 (4.70-6.10); WHITE BLOOD COUNT 8.1 X10'3 (4.5-11.0)
[2022-04-04 07:32] LABS: ALANINE AMINOTRANSFERASE 11 U/L (12-78); ALBUMIN/GLOBULIN RATIO 0.9 (1.1-1.5); ALKALINE PHOSPHATASE 97 IU/L (46-116); ANION GAP 8 (8-16); ASPARTATE AMINO TRANSFERASE 23 U/L (10-37); BILIRUBIN,TOTAL 1.6 MG/DL (0.1-1.0); BLOOD UREA NITROGEN 44 MG/DL (7-18); BUN/CREATININE RATIO 30.3 (5.4-32.0); CALCIUM 9.3 MG/DL (8.5-10.1); CHLORIDE 100 MMOL/L (99-107); CREATININE 1.45 MG/DL (0.60-1.10); GLUCOSE 113 MG/DL (70-104); POTASSIUM 3.5 MMOL/L (3.5-5.1); SODIUM 140 MMOL/L (135-145); TOTAL CARBON DIOXIDE 32.4 MMOL/L (24-32); TOTAL PROTEIN 6.3 G/DL (6.4-8.2); eGFR 47 ML/MIN
[2022-04-04] MEDS: furosemide 20 MG/2 ML vial IV SCH (07:44)
[2022-04-04] MEDS: budesonide 0.5mg/2ml UD nebule IH SCH (08:00)
[2022-04-04 08:53] VITALS: BP 113/65
[2022-04-04 09:01] VITALS: BP 112/64
[2022-04-04] MEDS: K and/or MAG REPLACEMENT MC SCH (10:43)
[2022-04-04 11:45] VITALS: BP 114/63
--- NOTE | 2022-04-04 14:12 | NUR ---
PAGER ID: [phone] Dr Monroy MESSAGE: [phone]. [place], pt says you were going to write script for Effer K, pt can't take big K pills. Please print script so pt can be discharged, Beckie foley [phone] Addendum: 04/04/22 at 1451 by Beckie Mays - Germain BRINK Dr Monroy returned call, will order the effer K to pharmacy.
--- NOTE | 2022-04-04 15:27 | NUR ---
This RN spoke with pharmacist at [facility] #[id number] in [place], Effer K prescription has not been escribed in to pharmacy Addendum: 04/04/22 at 1532 by Beckie Groves RN PAGER ID: [phone] MESSAGE: [phone], Bri, prescription for EfferK has not been received at pharmacy, [facility], Beckie [phone]
[2022-04-04] MEDS ORDERED: POTA20PA40 MT (15:57)
--- NOTE | 2022-04-04 17:33 | NUR ---
Dr Monroy escribed effer K to pharmacy, pt received discharged education re: medication schedule, and follow up appointments with pcp and cardiology. All questions answered. IV and panel monitor discontinued. Pt wheeled out to discharge, picked up by daughter.
--- NOTE | 2022-04-09 12:27 | NUR ---
Case Management DC follow up:Telephoned Patient, the telephone rang twice, then tone turned to busy signal. Repeated call three times with same results each time.
== END 2022-04-04 17:18 | disposition home or self-care (01) | DRG 280 ==
LOC: ER 18:48 → ED HOLD 23:33 → PCU 3S 04-03 07:08
PROVIDERS: ADMIT Internal Medicine; ATTEND Family Medicine
PROC: 0W9B3ZZ Drainage of Left Pleural Cavity, Percutaneous Approach (ICD-10-PCS; principal; 2022-04-04)
DX: I13.0 Hypertensive heart and chronic kidney disease with heart failure and stage 1 through stage 4 chronic kidney disease, or unspecified chronic kidney disease (principal); I21.A1 Myocardial infarction type 2; I50.33 Acute on chronic diastolic (congestive) heart failure; J91.8 Pleural effusion in other conditions classified elsewhere; E78.00 Pure hypercholesterolemia, unspecified; E87.6 Hypokalemia; I25.10 Atherosclerotic heart disease of native coronary artery without angina pectoris; I48.91 Unspecified atrial fibrillation; J44.9 Chronic obstructive pulmonary disease, unspecified; N18.30 Chronic kidney disease, stage 3 unspecified; Z82.49 Family history of ischemic heart disease and other diseases of the circulatory system; Z87.891 Personal history of nicotine dependence; Z95.2 Presence of prosthetic heart valve
CPT/HCPCS: 32555; 36415; 71045; 80053; 82948; 83605; 83735; 83880; 84132; 84484; 85025; 87040; 87081; 93005; 93306; 94640; 94760; 96365; 99285; A4615; A6212; A6213; A6222; A6449; G0378; J1940; J3480; J7030

== ENCOUNTER 2022-04-24 11:29 | Emergency (ER) | payer MEDICARE, BC ==
[~2022-04-24] VITALS: Ht 170.2 cm; Wt 80.9 kg
[~2022-04-24 11:29] MED LIST changes: +FURO40TA4 PO; +POTA20PA40 MT
[2022-04-24] MEDS ORDERED: DOXY100C76 PO ×2 (14:57)
[2022-04-24 15:22] VITALS: BP 125/87
[2022-04-25] MEDS ORDERED: POTA20PA31 PO (12:30)
[2022-04-25] MEDS ORDERED: DOXY-457 PO (12:30)
== END 2022-04-24 15:36 | disposition home or self-care (01) ==
LOC: ER 11:30
DX: S80.922D Unspecified superficial injury of left lower leg, subsequent encounter (principal); Z48.00 Encounter for change or removal of nonsurgical wound dressing; I11.9 Hypertensive heart disease without heart failure; J44.9 Chronic obstructive pulmonary disease, unspecified; Z79.899 Other long term (current) drug therapy; X58.XXXD Exposure to other specified factors, subsequent encounter
CPT/HCPCS: A6258; A6446; A6449

== ENCOUNTER 2022-04-25 06:05 | Inpatient (IN) | payer MEDICARE, BC ==
[2022-04-25] VITALS (10 sets, daily range): BP systolic 110–144; BP diastolic 44–64
[~2022-04-25] VITALS: Ht 170.2 cm; Wt 80.9 kg
[~2022-04-25 06:05] MED LIST changes: +DOXY100C76 PO
[2022-04-25 07:44] LABS: BASOPHILS # (AUTO) 0.1 X10'3 (0-0.2); BASOPHILS % (AUTO) 0.8 % (0-1); EOSINOPHILS # (AUTO) 0.3 X10'3 (0-0.9); EOSINOPHILS % (AUTO) 5.2 % (0-6); HEMATOCRIT 29.5 % (42.0-52.0); HEMOGLOBIN 10.5 g/dl (14.0-17.9); LYMPHOCYTES # (AUTO) 1.3 X10'3 (1.1-4.8); LYMPHOCYTES % (AUTO) 19.5 % (21-51); MEAN CORPUSCULAR HEMOGLOBIN 34.7 PG (27.0-31.0); MEAN CORPUSCULAR HGB CONC 35.6 g/dL (33.0-36.5); MEAN CORPUSCULAR VOLUME 97.4 FL (78-98); MONOCYTES # (AUTO) 0.6 X10'3 (0-0.9); MONOCYTES % (AUTO) 9.6 % (2-12); NEUTROPHILS # (AUTO) 4.2 X10'3 (1.8-7.7); NEUTROPHILS % (AUTO) 64.9 % (42-75); PLATELET COUNT 64 X10'3 (140-440); RED BLOOD COUNT 3.03 X10'6 (4.70-6.10); RED CELL DISTRIBUTION WIDTH 15.2 % (11.5-14.5); WHITE BLOOD COUNT 6.5 X10'3 (4.5-11.0)
[2022-04-25 07:58] LABS: APTT 28 SECONDS (22-32)
[2022-04-25 07:59] LABS: ALANINE AMINOTRANSFERASE 12 U/L (12-78); ALBUMIN 2.8 G/DL (3.4-5.0); ALBUMIN/GLOBULIN RATIO 0.9 (1.1-1.5); ALKALINE PHOSPHATASE 106 IU/L (46-116); ANION GAP 13 (8-16); ASPARTATE AMINO TRANSFERASE 22 U/L (10-37); BILIRUBIN,TOTAL 0.8 MG/DL (0.1-1.0); BLOOD UREA NITROGEN 42 MG/DL (7-18); BUN/CREATININE RATIO 18.4 (5.4-32.0); CALCIUM 8.8 MG/DL (8.5-10.1); CHLORIDE 105 MMOL/L (99-107); CREATININE 2.28 MG/DL (0.60-1.10); GLUCOSE 113 MG/DL (70-104); POTASSIUM 3.7 MMOL/L (3.5-5.1); SODIUM 142 MMOL/L (135-145); TOTAL CARBON DIOXIDE 24.2 MMOL/L (24-32); eGFR 28 ML/MIN
[2022-04-25 09:00] LABS: PLATELET ESTIMATE DECREASED
[2022-04-25 09:01] LABS: ACANTHOCYTES 1+; ANISOCYTOSIS FEW; BURR CELLS 1+; TARGET CELLS FEW
[2022-04-25] MEDS ORDERED: HYDROcodone/acetaminophen 5mg/325mg tablet PO PRN (10:05)
[2022-04-25] MEDS ORDERED: HYDROcodone/acetaminophen 10/325mg tab PO PRN (10:05)
[2022-04-25] MEDS ORDERED: metoprolol tartrate 1mg/ml inj IV PRN (10:05)
[2022-04-25] MEDS ORDERED: magnesium hydroxide 30ml (MOM) UD suspension PO PRN (10:05)
[2022-04-25] MEDS ORDERED: potassium Cl 20 mEq SR tablet PO PRN ×2 (10:05)
[2022-04-25] MEDS ORDERED: aminophylline 500mg/20ml vial IV PRN (10:05)
[2022-04-25] MEDS ORDERED: acetaminophen 325mg tablet PO PRN (10:05)
[2022-04-25] MEDS ORDERED: morphine 2 MG/ML inj. syringe IV PRN (10:05)
[2022-04-25] MEDS ORDERED: magnesium Cl slow-release 64mg tablet PO PRN (10:05)
[2022-04-25] MEDS ORDERED: regadenoson 0.4mg/5ml syringe IV PRN (10:05)
[2022-04-25] MEDS ORDERED: ondansetron/PF 4mg/2ml inj IV PRN (10:05)
[2022-04-25] MEDS ORDERED: potassium Cl 40MEQ/1/2NS 520ml 520 ML IV PRN (10:05)
[2022-04-25] MEDS ORDERED: magnesium 4gm in 100ml NS 100 ML IV PRN (10:05)
[2022-04-25] MEDS ORDERED: nitroGLYCERIN 0.4mg SUBLingual tab SL PRN (10:05)
[2022-04-25] MEDS ORDERED: mag hydrox/Alum hydrox/simeth 30ml oral suspension PO PRN (10:05)
[2022-04-25] MEDS ORDERED: furosemide 40mg/4ml inj IV ONE (10:18)
[2022-04-25] MEDS ORDERED: furosemide 40mg/4ml inj IV SCH (10:18)
[2022-04-25] MEDS: pantoprazole 40mg Tablet.DR PO SCH (11:13)
[2022-04-25] MEDS: doxycycline inj 100 MG in normal saline 100ml IV soln 100 ML IV SCH ×2 (11:13→21:25)
[2022-04-25] MEDS: normal saline 1000ml 1,000 ML IV SCH (12:00)
[2022-04-25] MEDS ORDERED: POTA20PA31 PO (12:30)
[2022-04-25] MEDS ORDERED: DOXY-457 PO (12:30)
[2022-04-25] MEDS ORDERED: non-formulary drug (Albuterol 2 PUFFS) IH PRN (13:05)
[2022-04-25] MEDS ORDERED: ipratropium/albuterol 3ml nebule NEB PRN (13:10)
[2022-04-25] MEDS ORDERED: albuterol 2.5 MG/3 ML nebule NEB PRN (13:15)
--- NOTE | 2022-04-25 19:16 | NUR ---
Patient in room ED 7. I have received report from LUCHO BRINK in ER and had the opportunity to ask questions and will assume patient care.
--- NOTE | 2022-04-25 19:36 | NUR ---
PATIENT ARRIVED ON THE UNIT WITH NO SIGN OF DISTRESS. WE WILL CONTINUE TO MONITOR.
[2022-04-25] MEDS: K and/or MAG REPLACEMENT MC SCH (20:00)
[2022-04-25] MEDS: docusate sod 100mg capsule PO SCH (20:00)
[2022-04-25] MEDS ORDERED: doxycycline inj 100 MG in normal saline 100ml IV soln 100 ML IV SCH (20:00)
[2022-04-25] MEDS: heparin, porcine 5000 units/ml vial SQ SCH (20:00)
[2022-04-25] MEDS ORDERED: atenolol 25mg tablet PO SCH (21:00)
[2022-04-25] MEDS ORDERED: amLODIPine 5mg tablet PO SCH (21:00)
[2022-04-25] MEDS ORDERED: losartan 50mg tablet PO SCH (21:00)
[2022-04-25] MEDS ORDERED: atorvastatin 20mg tablet PO SCH (21:00)
[2022-04-25] MEDS ORDERED: HYDROchlorothiazide 25mg tablet PO SCH (21:00)
[2022-04-25] MEDS ORDERED: aspirin 81mg, enteric-coated 1 TAB TABLET.DR PO SCH (21:00)
[2022-04-26 02:00] VITALS: BP 128/71
[2022-04-26 06:00] VITALS: BP 126/54
[2022-04-26] MEDS: normal saline 1000ml 1,000 ML IV SCH (06:10)
--- NOTE | 2022-04-26 06:34 | NUR ---
Problems reprioritized. Patient report given, questions answered & plan of care reviewed with AILEEN BRINK.
--- NOTE | 2022-04-26 06:51 | NUR ---
Pt is receiving labs and resting in no apparent distress. Bed is low, locked and has call light in reach. Will continue to monitor.I received report from KEENA Bellamy and student.
[2022-04-26 07:24] LABS: BASOPHILS # (AUTO) 0.1 X10'3 (0-0.2); EOSINOPHILS # (AUTO) 0.2 X10'3 (0-0.9); EOSINOPHILS % (AUTO) 2.9 % (0-6); HEMATOCRIT 32.5 % (42.0-52.0); HEMOGLOBIN 11.1 g/dl (14.0-17.9); LYMPHOCYTES # (AUTO) 1.3 X10'3 (1.1-4.8); LYMPHOCYTES % (AUTO) 15.6 % (21-51); MEAN CORPUSCULAR HGB CONC 34.1 g/dL (33.0-36.5); MEAN CORPUSCULAR VOLUME 99.7 FL (78-98); MEAN PLATELET VOLUME 8.1 FL (7.4-10.4); MONOCYTES # (AUTO) 0.8 X10'3 (0-0.9); MONOCYTES % (AUTO) 9.4 % (2-12); NEUTROPHILS # (AUTO) 6.1 X10'3 (1.8-7.7); NEUTROPHILS % (AUTO) 71.1 % (42-75); PLATELET COUNT 56 X10'3 (140-440); RED BLOOD COUNT 3.25 X10'6 (4.70-6.10); RED CELL DISTRIBUTION WIDTH 15.1 % (11.5-14.5); WHITE BLOOD COUNT 8.6 X10'3 (4.5-11.0)
[2022-04-26 07:45] LABS: ALANINE AMINOTRANSFERASE 11 U/L (12-78); ALBUMIN 2.8 G/DL (3.4-5.0); ALBUMIN/GLOBULIN RATIO 0.9 (1.1-1.5); ALKALINE PHOSPHATASE 106 IU/L (46-116); AMYLASE 45 U/L (25-115); ANION GAP 11 (8-16); ASPARTATE AMINO TRANSFERASE 20 U/L (10-37); BILIRUBIN,TOTAL 1.6 MG/DL (0.1-1.0); BLOOD UREA NITROGEN 43 MG/DL (7-18); BUN/CREATININE RATIO 21.7 (5.4-32.0); CALCIUM 8.8 MG/DL (8.5-10.1); CHLORIDE 107 MMOL/L (99-107); CREATININE 1.98 MG/DL (0.60-1.10); GLUCOSE 90 MG/DL (70-104); LIPASE 251 U/L (73-393); MAGNESIUM 1.8 MG/DL (1.5-2.4); PHOSPHORUS 4.2 MG/DL (2.3-4.5); POTASSIUM 3.4 MMOL/L (3.5-5.1); SODIUM 143 MMOL/L (135-145); TOTAL CARBON DIOXIDE 24.8 MMOL/L (24-32); TOTAL PROTEIN 5.9 G/DL (6.4-8.2); eGFR 33 ML/MIN
[2022-04-26] MEDS: docusate sod 100mg capsule PO SCH (08:00)
[2022-04-26] MEDS: heparin, porcine 5000 units/ml vial SQ SCH (08:00)
[2022-04-26] MEDS: K and/or MAG REPLACEMENT MC SCH (08:00)
[2022-04-26] MEDS ORDERED: POTASSIUM BICARB 20meq eff tab 20 MEQ TABLET.EFF PO SCH (08:00)
[2022-04-26] MEDS ORDERED: furosemide 40mg tablet PO SCH (08:00)
[2022-04-26 08:41] LABS: % IRON SATURATION 23 % (11-46); IRON 42 UG/DL (53-167); TOTAL IRON BINDING CAPACITY 184 UG/DL (259-388)
[2022-04-26] MEDS: doxycycline inj 100 MG in normal saline 100ml IV soln 100 ML IV SCH (08:52)
[2022-04-26] MEDS: pantoprazole 40mg Tablet.DR PO SCH (08:53)
[2022-04-26 09:05] LABS: FERRITIN 266 NG/ML (26-388)
--- NOTE | 2022-04-26 09:42 | NUR ---
anil CAMPUZANO. Margaret RM. [id number], I held heparin for p.t with Plt. count of 64. until otherwise advised. I continued HH diet for pt as well per dietitian request. Please advise if change needed Thank you Caitlin BRINK PCU #[id number]
[2022-04-26 10:00] VITALS: BP 118/60
[2022-04-26] MEDS ORDERED: CLOP-32 PO (11:57)
--- NOTE | 2022-04-26 17:38 | NUR ---
paged for clarification on DC date. rm. [id number] has DC orders with the date of . Please advise for correct date. Caitlin BRINK pcu 1730
[2022-04-26] MEDS ORDERED: APIX2.5T PO (17:47)
[2022-04-26] MEDS ORDERED: apixaban 2.5mg tablet PO SCH (20:00)
--- NOTE | 2022-05-07 09:26 | NUR ---
Case Management DC follow up: Spoke with Patient via telephone.S/P: Patient Reports: Denies: Acute/continuous CP, emergent SOB, resp distress,orthopnea, N/V, weakness, vertigo, syncope episodes, orthostatic hypotension, ANTONIO, blurry vision, s/s of stroke/BE-FAST, dysphagia, dysuria, hematuria, retention, abdominal pain/distention hematochezia, melena, unexplained bruising , bleeding, fever, chills.Verbalizes compliance with aftercare. Verbalizes he has stopped drinking since last hospital visit.Verbalizes understanding of new Rx:, why prescribed; continues/resumes current Rx as ordered. Verbalizes understanding of s/s that warrant a 9-11/ER visit for further evaluation.Verbalizes left leg cellulitis has resolved with just a small scab remaining.Verbalizes he has follow up appointment with his PCP, Dr. Mireles, 05/16/22; verbalizing he will request a referral for boarder machine at that time.Acknowledges need to make a follow up appointment with at this time.Verbalizes the nurses were all sweethearts , and took good care of him.Needs met, questions/concerns addressed at DC; no further questions/concerns regarding recent hospital stay and/or DC status at this time.
== END 2022-04-26 18:10 | disposition home or self-care (01) | DRG 602 ==
LOC: ER 06:06 → ED HOLD 10:07 → EDBEDREQ 18:10 → PCU 3S 19:16
PROVIDERS: ADMIT Internal Medicine; ATTEND Internal Medicine
PROC: 4A02XM4 Measurement of Cardiac Total Activity, External Approach (ICD-10-PCS; principal; 2022-04-25)
PROC: 3E033HZ Introduction of Radioactive Substance into Peripheral Vein, Percutaneous Approach (ICD-10-PCS; 2022-04-25)
DX: L03.116 Cellulitis of left lower limb (principal); I50.33 Acute on chronic diastolic (congestive) heart failure; J18.9 Pneumonia, unspecified organism; I13.0 Hypertensive heart and chronic kidney disease with heart failure and stage 1 through stage 4 chronic kidney disease, or unspecified chronic kidney disease; J44.0 Chronic obstructive pulmonary disease with (acute) lower respiratory infection; N17.9 Acute kidney failure, unspecified; I50.30 Unspecified diastolic (congestive) heart failure; I25.119 Atherosclerotic heart disease of native coronary artery with unspecified angina pectoris; B35.1 Tinea unguium; D64.9 Anemia, unspecified; D69.6 Thrombocytopenia, unspecified; E78.00 Pure hypercholesterolemia, unspecified; Z96.611 Presence of right artificial shoulder joint; F10.10 Alcohol abuse, uncomplicated; K57.90 Diverticulosis of intestine, part unspecified, without perforation or abscess without bleeding; I73.9 Peripheral vascular disease, unspecified; I48.91 Unspecified atrial fibrillation; Z96.612 Presence of left artificial shoulder joint; N18.9 Chronic kidney disease, unspecified; R63.6 Underweight; Z82.49 Family history of ischemic heart disease and other diseases of the circulatory system; Z87.891 Personal history of nicotine dependence; Z95.2 Presence of prosthetic heart valve; Z68.27 Body mass index [BMI] 27.0-27.9, adult; Z79.899 Other long term (current) drug therapy; Z98.42 Cataract extraction status, left eye; Z98.41 Cataract extraction status, right eye; Z79.82 Long term (current) use of aspirin
CPT/HCPCS: 36415; 71045; 78452; 80053; 82150; 82607; 82728; 83540; 83550; 83605; 83690; 83735; 83880; 84100; 84484; 85008; 85025; 85610; 85730; 87040; 93005; 93017; 94640; 94760; 99285; A4615; A6258; A6446; A6449; A9500; G0378; J1940; J2785; J3490; J7030